=== PATIENT | female | born 1990 | race American Indian/Alaskan Native ===

== ENCOUNTER 2021-11-04 22:10 | Emergency (ER) | payer SELFPAY ==
[2021-11-04 23:55] LABS: Bacteria,Urine 1+ /HPF (Negative); Bilirubin,Urine NEG (Negative); Blood,Urine NEG (Negative); Color,Urine Straw (Yellow); Protein,Urine <15 mg/dL mg/dL (Negative); Sperm,Urine 1+ /HPF (NP); Urobilinogen,Urine < 2.0 mg/dL (<2.0); WBC,Urine < 1.0 /HPF (0.0-6.0)
[2021-11-05] LABS: Amphetamine Screen,Urine Negative; Benzodiazepines Screen,Urine Negative; Cannabinoid Screen,Urine Negative; Cocaine Screen,Urine Negative; Methadone Screen,Urine Negative; Opiate Screen,Urine Negative
[2021-11-05 00:42] LABS: Basophils # (Auto) 0.1 K/mm3 (0.0-0.1); Basophils % (Auto) 0.5 % (0.0-1.8); Eosinophils # (Auto) 0.1 K/mm3 (0.0-0.4); Eosinophils % (Auto) 0.7 % (0.0-4.3); Hematocrit 40.1 % (30.3-42.9); Hemoglobin 13.1 gm/dl (10.1-14.3); Lymphocytes # (Auto) 3.6 K/mm3 (1.2-5.4); Lymphocytes % (Auto) 31.3 % (13.4-35.0); Mean Corpuscular HGB Conc 33 % (30-34); Mean Corpuscular Volume 96 fl (79-97); Monocytes # (Auto) 0.6 K/mm3 (0.0-0.8); Platelet Count 459 K/mm3 (140-440); Red Blood Count 4.19 M/mm3 (3.65-5.03)
[2021-11-05 00:56] LABS: Blood Urea Nitrogen 7 mg/dL (7-17); Hemolysis Index 7
[2021-11-05 01:02] LABS: BUN/Creatinine Ratio 10
--- NOTE | 2021-11-05 02:48 | Emergency Department Report ---
ED Psych HPI - General Chief Complaint: Psych Stated Complaint: CHEST PAIN HALLUCINATIONS Time Seen by Provider: 11/05/21 01:58 Source: patient Mode of arrival: Ambulatory Limitations: No Limitations - History of Present Illness Initial Comments: 31-year-old female the past medical history of hypertension and schizophrenia presents to the hospital complaining of psychosis and anterior chest wall pain prior patient states she takes metoprolol unknown dose daily for hypertension. Patient denies substance abuse. She complains of hallucinations but denies suicidal homicidal ideation. She denies cough, fever, or shortness of breath and chest pain is reproducible with palpation to sternum. Is unclear if patient is compliant with her psychiatric medications that she has given contradictory answers when asked about taking her medication - Related Data Previous Rx's Medication Instructions Recorded Last Taken Type busPIRone [Buspar] 5 mg PO BID 30 Days #60 tab 11/05/21 Unknown Rx hydrOXYzine PAMOATE [Vistaril] 25 mg PO Q6HR PRN 30 Days #60 cap 11/05/21 Unknown Rx risperiDONE [RisperDAL] 2 mg PO QHS 30 Days #30 11/05/21 Unknown Rx Allergies Allergy/AdvReac Type Severity Reaction Status Date / Time Penicillins Allergy Unknown Verified 11/04/21 23:06 ED Review of Systems ROS: Stated complaint: CHEST PAIN HALLUCINATIONS Other details as noted in HPI Comment: All other systems reviewed and negative ED Past Medical Hx - Medications Home Medications: Home Medications Medication Instructions Recorded Confirmed Last Taken Type busPIRone [Buspar] 5 mg PO BID 30 Days #60 tab 11/05/21 Unknown Rx hydrOXYzine PAMOATE [Vistaril] 25 mg PO Q6HR PRN 30 Days #60 cap 11/05/21 Unknown Rx risperiDONE [RisperDAL] 2 mg PO QHS 30 Days #30 11/05/21 Unknown Rx ED Physical Exam - General Limitations: No Limitations - Other Other exam information: General: No acute distress Head: Atraumatic Eyes: normal appearance ENT: Moist mucous membranes Neck: Normal appearance, no midline tenderness Chest: Clear to auscultation bilaterally, reproducible sternal chest wall tenderness CV: Regular rate and rhythm Abdomen: Soft, normal bowel sounds, nontender, nondistended, no rebound or guarding Back: Normal inspection Extremity: Normal inspection, full range of motion, no calf tenderness or leg edema Neuro: Alert O x 3, no facial asymmetry, speech clear, no gross motor sensory deficit Psych: Appropriate behavior Skin: No rash ED Course Vital Signs 11/04/21 11/04/21 11/05/21 22:43 23:53 09:34 Temperature 97.8 F 98.3 F 98.4 F Pulse Rate 100 H 78 76 Respiratory 18 18 18 Rate Blood Pressure 151/87 Blood Pressure 136/84 102/57 [Left] O2 Sat by Pulse 97 99 95 Oximetry 11/05/21 11/05/21 09:57 11:41 Temperature Pulse Rate 76 Respiratory Rate Blood Pressure 102/57 Blood Pressure [Left] O2 Sat by Pulse 95 Oximetry ED Medical Decision Making - Lab Data Result diagrams: 11/05/21 00:15 11/05/21 00:15 Lab Results 11/04/21 11/04/21 11/05/21 Range/Units Unknown Unknown 00:15 WBC (4.5-11.0) K/mm3 RBC (3.65-5.03) M/mm3 Hgb (10.1-14.3) gm/dl Hct (30.3-42.9) % MCV (79-97) fl MCH (28-32) pg MCHC (30-34) % RDW (13.2-15.2) % Plt Count (140-440) K/mm3 Lymph % (Auto) (13.4-35.0) % Stokes % (Auto) (0.0-7.3) % Eos % (Auto) (0.0-4.3) % Baso % (Auto) (0.0-1.8) % Lymph # (Auto) (1.2-5.4) K/mm3 Stokes # (Auto) (0.0-0.8) K/mm3 Eos # (Auto) (0.0-0.4) K/mm3 Baso # (Auto) (0.0-0.1) K/mm3 Seg Neutrophils % (40.0-70.0) % Seg Neutrophils # (1.8-7.7) K/mm3 Sodium (137-145) mmol/L Potassium (3.6-5.0) mmol/L Chloride (98-107) mmol/L Carbon Dioxide (22-30) mmol/L Anion Gap mmol/L BUN (7-17) mg/dL Creatinine (0.6-1.2) mg/dL Estimated GFR ml/min BUN/Creatinine Ratio % Glucose (65-100) mg/dL Calcium (8.4-10.2) mg/dL Urine Color Straw (Yellow) Urine Turbidity Clear (Clear) Urine pH 6.0 (5.0-7.0) Ur Specific Klemme 1.003 (1.003-1.030) Urine Protein <15 mg/dl (Negative) mg/dL Urine Glucose (UA) Neg (Negative) mg/dL Urine Ketones Neg (Negative) mg/dL Urine Blood Neg (Negative) Urine Nitrite Neg (Negative) Urine Bilirubin Neg (Negative) Urine Urobilinogen < 2.0 (<2.0) mg/dL Ur Leukocyte Esterase Neg (Negative) Urine WBC (Auto) < 1.0 (0.0-6.0) /HPF Urine RBC (Auto) 1.0 (0.0-6.0) /HPF U Epithel Cells (Auto) < 1.0 (0-13.0) /HPF Urine Bacteria (Auto) 1+ (Negative) /HPF Urine Yeast (Budding) Few /HPF Urine Sperm 1+ (TITLE EXAMINER) /HPF Salicylates < 0.3 L (2.8-20.0) mg/dL Urine Opiates Screen Negative Urine Methadone Screen Negative Acetaminophen (10.0-30.0) ug/mL Ur Barbiturates Screen Negative Ur Phencyclidine Scrn Negative Ur Amphetamines Screen Negative U Benzodiazepines Scrn Negative Urine Cocaine Screen Negative U Marijuana (THC) Screen Negative Drugs of Abuse Note Disclamer Plasma/Serum Alcohol (0-0.07) % 11/05/21 11/05/21 11/05/21 Range/Units 00:15 00:15 00:15 WBC (4.5-11.0) K/mm3 RBC (3.65-5.03) M/mm3 Hgb (10.1-14.3) gm/dl Hct (30.3-42.9) % MCV (79-97) fl MCH (28-32) pg MCHC (30-34) % RDW (13.2-15.2) % Plt Count (140-440) K/mm3 Lymph % (Auto) (13.4-35.0) % Stokes % (Auto) (0.0-7.3) % Eos % (Auto) (0.0-4.3) % Baso % (Auto) (0.0-1.8) % Lymph # (Auto) (1.2-5.4) K/mm3 Stokes # (Auto) (0.0-0.8) K/mm3 Eos # (Auto) (0.0-0.4) K/mm3 Baso # (Auto) (0.0-0.1) K/mm3 Seg Neutrophils % (40.0-70.0) % Seg Neutrophils # (1.8-7.7) K/mm3 Sodium 140 (137-145) mmol/L Potassium 4.1 (3.6-5.0) mmol/L Chloride 104.2 (98-107) mmol/L Carbon Dioxide 21 L (22-30) mmol/L Anion Gap 19 mmol/L BUN 7 (7-17) mg/dL Creatinine 0.7 (0.6-1.2) mg/dL Estimated GFR > 60 ml/min BUN/Creatinine Ratio 10 % Glucose 117 H (65-100) mg/dL Calcium 10.0 (8.4-10.2) mg/dL Urine Color (Yellow) Urine Turbidity (Clear) Urine pH (5.0-7.0) Ur Specific Klemme (1.003-1.030) Urine Protein (Negative) mg/dL Urine Glucose (UA) (Negative) mg/dL Urine Ketones (Negative) mg/dL Urine Blood (Negative) Urine Nitrite (Negative) Urine Bilirubin (Negative) Urine Urobilinogen (<2.0) mg/dL Ur Leukocyte Esterase (Negative) Urine WBC (Auto) (0.0-6.0) /HPF Urine RBC (Auto) (0.0-6.0) /HPF U Epithel Cells (Auto) (0-13.0) /HPF Urine Bacteria (Auto) (Negative) /HPF Urine Yeast (Budding) /HPF Urine Sperm (TITLE EXAMINER) /HPF Salicylates (2.8-20.0) mg/dL Urine Opiates Screen Urine Methadone Screen Acetaminophen 5.0 L (10.0-30.0) ug/mL Ur Barbiturates Screen Ur Phencyclidine Scrn Ur Amphetamines Screen U Benzodiazepines Scrn Urine Cocaine Screen U Marijuana (THC) Screen Drugs of Abuse Note Plasma/Serum Alcohol < 0.01 (0-0.07) % 11/05/21 Range/Units 00:15 WBC 11.4 H (4.5-11.0) K/mm3 RBC 4.19 (3.65-5.03) M/mm3 Hgb 13.1 (10.1-14.3) gm/dl Hct 40.1 (30.3-42.9) % MCV 96 (79-97) fl MCH 31 (28-32) pg MCHC 33 (30-34) % RDW 13.0 L (13.2-15.2) % Plt Count 459 H (140-440) K/mm3 Lymph % (Auto) 31.3 (13.4-35.0) % Stokes % (Auto) 5.0 (0.0-7.3) % Eos % (Auto) 0.7 (0.0-4.3) % Baso % (Auto) 0.5 (0.0-1.8) % Lymph # (Auto) 3.6 (1.2-5.4) K/mm3 Stokes # (Auto) 0.6 (0.0-0.8) K/mm3 Eos # (Auto) 0.1 (0.0-0.4) K/mm3 Baso # (Auto) 0.1 (0.0-0.1) K/mm3 Seg Neutrophils % 62.5 (40.0-70.0) % Seg Neutrophils # 7.2 (1.8-7.7) K/mm3 Sodium (137-145) mmol/L Potassium (3.6-5.0) mmol/L Chloride (98-107) mmol/L Carbon Dioxide (22-30) mmol/L Anion Gap mmol/L BUN (7-17) mg/dL Creatinine (0.6-1.2) mg/dL Estimated GFR ml/min BUN/Creatinine Ratio % Glucose (65-100) mg/dL Calcium (8.4-10.2) mg/dL Urine Color (Yellow) Urine Turbidity (Clear) Urine pH (5.0-7.0) Ur Specific Klemme (1.003-1.030) Urine Protein (Negative) mg/dL Urine Glucose (UA) (Negative) mg/dL Urine Ketones (Negative) mg/dL Urine Blood (Negative) Urine Nitrite (Negative) Urine Bilirubin (Negative) Urine Urobilinogen (<2.0) mg/dL Ur Leukocyte Esterase (Negative) Urine WBC (Auto) (0.0-6.0) /HPF Urine RBC (Auto) (0.0-6.0) /HPF U Epithel Cells (Auto) (0-13.0) /HPF Urine Bacteria (Auto) (Negative) /HPF Urine Yeast (Budding) /HPF Urine Sperm (TITLE EXAMINER) /HPF Salicylates (2.8-20.0) mg/dL Urine Opiates Screen Urine Methadone Screen Acetaminophen (10.0-30.0) ug/mL Ur Barbiturates Screen Ur Phencyclidine Scrn Ur Amphetamines Screen U Benzodiazepines Scrn Urine Cocaine Screen U Marijuana (THC) Screen Drugs of Abuse Note Plasma/Serum Alcohol (0-0.07) % - EKG Data -: EKG Interpreted by Me EKG shows normal: sinus rhythm, ST-T waves (no stemi) Rate: tachycardia (101) - Medical Decision Making 31-year-old female presents to the hospital complaining of psychosis. Patient does not endorse suicidal homicidal ideation. Is unclear if patient is compliant with her medications. Mental health evaluation requested. Patient has reproducible sternal chest wall pain likely secondary to musculoskeletal pain Critical Care Time: No Critical care attestation.: If time is entered above; I have spent that time in minutes in the direct care of this critically ill patient, excluding procedure time. ED Disposition Clinical Impression: Acute psychosis, Chest wall tenderness, Schizophrenia Disposition: 01 HOME / SELF CARE / HOMELESS Is pt being admited?: No Does the pt Need Aspirin: No Condition: Stable Instructions: Chest Wall Pain, Managing Schizophrenia Prescriptions: busPIRone [Buspar] 5 mg PO BID 30 Days #60 tab risperiDONE [RisperDAL] 2 mg PO QHS 30 Days #30 hydrOXYzine PAMOATE [Vistaril] 25 mg PO Q6HR PRN 30 Days #60 cap PRN Reason: Anxiety Referrals: PRIMARY CARE, [Primary Care Provider] - 3-5 Days
[2021-11-05 03:01] LABS: HCG Qualitative,Urine Negative (Negative)
[2021-11-05 09:35] VITALS: BP 102/57
[2021-11-05] MEDS ORDERED: METOPROLOL TARTRATE 25 MG TAB PO SCH (10:00)
--- NOTE | 2021-11-05 11:10 | Consultation ---
History of Present Illness - Reason for Consult Consult date: 11/05/21 Reason for consult: Mental health evaluation - History of Present Psychiatric Illness ED Note: 31-year-old female the past medical history of hypertension and schizophrenia presents to the hospital complaining of psychosis and anterior chest wall pain prior patient states she takes metoprolol unknown dose daily for hypertension. Patient denies substance abuse. She complains of hallucinations but denies suicidal homicidal ideation. She denies cough, fever, or shortness of breath and chest pain is reproducible with palpation to sternum. Is unclear if patient is compliant with her psychiatric medications that she has given contradictory answers when asked about taking her medication. The patient is a 31 year old female with history of schizophrenia. In my enc ounter with the patient, she is calm, alert and oriented x3. The patient reports that she ran out of her medications about a week ago " i just want to restart my meds." She denies any current suicidal/homicidal ideation and denies hallucinations. Diagnoses: Schizophrenia Suicide attempts or Self-harm behavior: Denies Prior psychiatric hospitalizations: Yes Substance Abuse history: Denies Previous psychiatric medications tried:Seroquel, Risperidone, Klonopin Outpatient treatment: Unknown PAST MEDICAL HISTORY: unknown Family Psychiatric History: None reported or documented SOCIAL HISTORY Marital Status: Single Living Arrangements: penitentiary Employment Status: unemployed Access to guns/weapons: Denies Education: 9th grade History of Abuse: none reported Legal History: none reported REVIEW OF SYSTEMS Constitutional: Negative for weight loss ENT: Negative for stridor Respiratory: Negative for cough or hemoptysis All other systems reviewed and are negative MENTAL STATUS EXAMINATION General Appearance and Behavior: Age appropriate, good hygiene, wearing appropriate clothes, calm, cooperative Cooperation: Participating/engaged Psychomotor Behavior: Normal Mood: Ok Affect and affective range: congruent with mood Thought Process: Goal directed Thought Content: Reality oriented Speech: Normal Suicidal Ideation: Denies Homicidal Ideation: Denies Hallucinations: Denies Delusions: None Impulse Control: Normal Insight and Judgment: Limited insight and judgment, Memory: Normal Attention: Divided Orientation: Alert, oriented Assessment and Plan (1)Hx Schizophrenia Current Visit: Yes Status: Acute Treatment Plan Vistaril 25mg po Every 6 hours as needed for anxiety Risperidone 2mg po QHS Buspar 5mg po BID The patient needs to follow up with his outpatient psychiatrist and therapist. Continue home meds Disposition: Do not recommend psychiatric inpatient admission at this time. [facility] will provide patient with psychiatric outpatient resources. Will sign off. Thanks Case staffed with Dr. Richard Medications and Allergies Medications and Allergies Allergies Allergy/AdvReac Type Severity Reaction Status Date / Time Penicillins Allergy Unknown Verified 11/04/21 23:06 Home Medications Medication Instructions Recorded Confirmed Last Taken Type busPIRone [Buspar] 5 mg PO BID 30 Days #60 tab 11/05/21 Unknown Rx hydrOXYzine PAMOATE [Vistaril] 25 mg PO Q6HR PRN 30 Days #60 cap 11/05/21 Unknown Rx risperiDONE [RisperDAL] 2 mg PO QHS 30 Days #30 11/05/21 Unknown Rx Active Meds: Active Medications Metoprolol Tartrate (Metoprolol Tartrate 25 Mg Tab) 25 mg PO BID JASPER Last Admin: 11/05/21 09:57 Dose: 25 mg Mental Status Exam - Vital signs Last Vital Signs Temp 98.4 F 11/05/21 09:34 Pulse 76 11/05/21 09:57 Resp 18 11/05/21 09:34 BP 102/57 11/05/21 09:57 Pulse Ox 95 11/05/21 09:34 Results Result Diagrams: 11/05/21 00:15 11/05/21 00:15 Abnormal lab results 11/05/21 11/05/21 11/05/21 Range/Units 00:15 00:15 00:15 WBC (4.5-11.0) K/mm3 RDW (13.2-15.2) % Plt Count (140-440) K/mm3 Carbon Dioxide 21 L (22-30) mmol/L Glucose 117 H (65-100) mg/dL Salicylates < 0.3 L (2.8-20.0) mg/dL Acetaminophen 5.0 L (10.0-30.0) ug/mL 11/05/21 Range/Units 00:15 WBC 11.4 H (4.5-11.0) K/mm3 RDW 13.0 L (13.2-15.2) % Plt Count 459 H (140-440) K/mm3 Carbon Dioxide (22-30) mmol/L Glucose (65-100) mg/dL Salicylates (2.8-20.0) mg/dL Acetaminophen (10.0-30.0) ug/mL All other labs normal.
[2021-11-05] MEDS ORDERED: FLUCONAZOLE 200 MG TAB PO ONE (12:03)
--- NOTE | 2021-11-06 09:02 | Electrocardiograph Report ---
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
== END 2021-11-05 13:05 | disposition home or self-care (01) ==
LOC: ED 22:10
DX: F23 Brief psychotic disorder (principal); R07.89 Other chest pain; Z88.0 Allergy status to penicillin
CPT/HCPCS: 36415; 80048; 80307; 80320; 81001; 81025; 85025; 93005; 99284; G0480

== ENCOUNTER 2021-12-15 10:45 | Emergency (ER) | payer SELFPAY ==
--- NOTE | 2021-12-15 13:51 | Emergency Department Report ---
- General Chief Complaint: Recheck/Abnormal Lab/Rx Stated Complaint: FLU/MEDICATION Time Seen by Provider: 12/15/21 13:41 Source: patient Mode of arrival: Ambulatory Limitations: No Limitations - History of Present Illness Initial Comments: 31-year-old female with no past medical history presents to the emergency department for evaluation of 2-week history of worsening cough. She states that she coughed so much at night that she has been unable to sleep. She states that she has intermittent shortness of breath but denies shortness of breath at this time. She denies fever, headache, nausea, vomiting. She states that she has not taken any medication for her symptoms at home. MD Complaint: cough, rhinorrhea, nasal congestion -: Gradual, week(s) (2) Severity: severe Associated Symptoms: rhinorrhea, nasal congestion, cough, shortness of breath. denies: fever, chills, myalgias, diaphoresis, headache, stiff neck, chest pain, abdominal pain, nausea, vomiting, diarrhea, rash, confusion, weight loss, epistaxis, hoarseness, ear pain Treatments Prior to Arrival: none - Related Data Previous Rx's Medication Instructions Recorded Last Taken Type busPIRone [Buspar] 5 mg PO BID 30 Days #60 tab 11/05/21 Unknown Rx hydrOXYzine PAMOATE [Vistaril] 25 mg PO Q6HR PRN 30 Days #60 cap 11/05/21 Unknown Rx risperiDONE [RisperDAL] 2 mg PO QHS 30 Days #30 11/05/21 Unknown Rx Benzonatate [Tessalon Perles] 100 mg PO Q8HR #21 cap 12/15/21 Unknown Rx guaiFENesin/CODEINE [Robitussin AC] 10 ml PO TID PRN #120 ml 12/15/21 Unknown Rx Allergies Allergy/AdvReac Type Severity Reaction Status Date / Time Penicillins Allergy Unknown Verified 11/04/21 23:06 ED Review of Systems ROS: Stated complaint: FLU/MEDICATION Other details as noted in HPI Comment: All other systems reviewed and negative Constitutional: denies: chills, fever, malaise, weakness Eyes: denies: eye pain, eye discharge, vision change ENT: congestion. denies: ear pain, throat pain, dental pain, hearing loss, epistaxis Respiratory: cough, shortness of breath. denies: SOB with exertion, SOB at rest, stridor, wheezing Cardiovascular: denies: chest pain, palpitations, dyspnea on exertion Gastrointestinal: denies: abdominal pain, nausea, vomiting, diarrhea, hematemesis, melena, hematochezia Genitourinary: denies: urgency, dysuria Musculoskeletal: denies: back pain Skin: denies: rash, lesions Neurological: denies: headache, weakness ED Past Medical Hx - Social History Smoking Status: Current Every Day Smoker Substance Use Type: None - Medications Home Medications: Home Medications Medication Instructions Recorded Confirmed Last Taken Type busPIRone [Buspar] 5 mg PO BID 30 Days #60 tab 11/05/21 Unknown Rx hydrOXYzine PAMOATE [Vistaril] 25 mg PO Q6HR PRN 30 Days #60 cap 11/05/21 Unknown Rx risperiDONE [RisperDAL] 2 mg PO QHS 30 Days #30 11/05/21 Unknown Rx Benzonatate [Tessalon Perles] 100 mg PO Q8HR #21 cap 12/15/21 Unknown Rx guaiFENesin/CODEINE [Robitussin AC] 10 ml PO TID PRN #120 ml 12/15/21 Unknown Rx ED Physical Exam - General Limitations: No Limitations General appearance: alert, in no apparent distress - Head Head exam: Present: atraumatic, normocephalic - Eye Eye exam: Present: normal appearance. Absent: conjunctival injection - ENT ENT exam: Absent: normal exam (Bilateral nasal mucosal edema.), normal orophraynx (Erythema noted to posterior oropharynx) - Neck Neck exam: Present: normal inspection. Absent: tenderness, lymphadenopathy - Respiratory Respiratory exam: Present: normal lung sounds bilaterally. Absent: respiratory distress, wheezes, rales, rhonchi, stridor, chest wall tenderness, accessory muscle use - Cardiovascular Cardiovascular Exam: Present: tachycardia, normal heart sounds - GI/Abdominal GI/Abdominal exam: Present: soft, normal bowel sounds. Absent: distended, guarding, rebound, rigid - Extremities Exam Extremities exam: Present: normal inspection, normal capillary refill. Absent: pedal edema, joint swelling, calf tenderness - Back Exam Back exam: Present: normal inspection. Absent: CVA tenderness (R), CVA tenderne ss (L) - Neurological Exam Neurological exam: Present: alert, oriented X3, normal gait - Psychiatric Psychiatric exam: Present: normal affect, normal mood - Skin Skin exam: Present: warm, dry, intact, normal color ED Course Vital Signs 12/15/21 12/15/21 11:48 14:03 Temperature 98.1 F 98.1 F Pulse Rate 112 H 81 Respiratory 18 20 Rate Blood Pressure 134/79 Blood Pressure 130/86 [Left] O2 Sat by Pulse 98 99 Oximetry ED Medical Decision Making - Medical Decision Making 31-year-old female with no past medical history presents to the emergency department for evaluation of 2-week history of worsening cough. She states that she coughed so much at night that she has been unable to sleep. She states that she has intermittent shortness of breath but denies shortness of breath at this time. She denies fever, headache, nausea, vomiting. She states that she has not taken any medication for her symptoms at home. Exam and symptoms consistent with URI with cough and congestion. Patient will be treated with Tessalon Perles along with Robitussin-AC to take as needed for cough. She is advised to take medication as prescribed and follow-up with prima ry care provider if no improvement or worsening symptoms. She is advised to return to the emergency department for any concerning symptoms. She verbalized understanding of and agreement with plan of care. Critical care attestation.: If time is entered above; I have spent that time in minutes in the direct care of this critically ill patient, excluding procedure time. ED Disposition Clinical Impression: URI with cough and congestion Disposition: 01 HOME / SELF CARE / HOMELESS Is pt being admited?: No Does the pt Need Aspirin: No Condition: Stable Instructions: Cough, Adult, [id number], Upper Respiratory Infection, Adult, [id number] Additional Instructions: Take medication as prescribed. Follow-up with primary care provider if no improvement or worsening symptoms. Prescriptions: guaiFENesin/CODEINE [Robitussin AC] 10 ml PO TID PRN #120 ml PRN Reason: Cough Benzonatate [Tessalon Perles] 100 mg PO Q8HR #21 cap Referrals: RILEY ARIAS MD [Primary Care Provider] - 3-5 Days Time of Disposition: 13:51
[2021-12-15 14:06] VITALS: BP 130/86
== END 2021-12-15 14:06 | disposition home or self-care (01) ==
LOC: ED 10:45
DX: J06.9 Acute upper respiratory infection, unspecified (principal); F17.200 Nicotine dependence, unspecified, uncomplicated; Z88.0 Allergy status to penicillin
CPT/HCPCS: 99282

== ENCOUNTER 2022-03-04 13:14 | Emergency (ER) | payer SELFPAY | END 2022-03-04 19:00 | disposition left against medical advice (07) | LOC: ED 13:14 | DX: R07.9 Chest pain, unspecified (principal); J00 Acute nasopharyngitis [common cold]; Z53.21 Procedure and treatment not carried out due to patient leaving prior to being seen by health care provider ==

== ENCOUNTER 2022-04-03 19:03 | Emergency (ER) | payer SELFPAY ==
--- NOTE | 2022-04-03 21:30 | Emergency Department Report ---
- General Chief Complaint: Upper Respiratory Infection Stated Complaint: CHEST COLD Time Seen by Provider: 04/03/22 21:18 Source: EMS Mode of arrival: Ambulatory Limitations: No Limitations - History of Present Illness Initial Comments: Patient 31-year-old female with history of paranoid schizophrenia who presents for cough x1 week. Patient denies fevers or chills no shortness of breath no wheezing. Cough is productive clear per patient. Patient denies throat pain or ear pain. Symptoms are exacerbated by viral exposure. Symptoms are relieved by nothing tried. Patient denies nausea or vomiting. Patient denies smoking. MD Complaint: cough - Related Data Previous Rx's Medication Instructions Recorded Last Taken Type busPIRone [Buspar] 5 mg PO BID 30 Days #60 tab 11/05/21 Unknown Rx hydrOXYzine PAMOATE [Vistaril] 25 mg PO Q6HR PRN 30 Days #60 cap 11/05/21 Unknown Rx risperiDONE [RisperDAL] 2 mg PO QHS 30 Days #30 11/05/21 Unknown Rx Benzonatate [Tessalon Perles] 100 mg PO Q8HR #21 cap 12/15/21 Unknown Rx guaiFENesin/CODEINE [Robitussin AC] 10 ml PO TID PRN #120 ml 12/15/21 Unknown Rx Acetaminophen [Pain Relief] 6,560 mg PO QID PRN #30 tab 04/03/22 Unknown Rx guaiFENesin [Guaifenesin] 400 mg PO Q8H PRN #20 tab 04/03/22 Unknown Rx Allergies Allergy/AdvReac Type Severity Reaction Status Date / Time Penicillins Allergy Unknown Verified 11/04/21 23:06 ED Review of Systems ROS: Stated complaint: CHEST COLD Other details as noted in HPI Constitutional: denies: chills, fever Eyes: denies: eye pain, eye discharge, vision change ENT: congestion. denies: ear pain, throat pain Respiratory: cough. denies: shortness of breath, stridor, wheezing Cardiovascular: denies: chest pain, palpitations Endocrine: no symptoms reported Gastrointestinal: denies: abdominal pain, nausea, diarrhea Genitourinary: denies: urgency, dysuria, discharge Musculoskeletal: denies: back pain, joint swelling, arthralgia Skin: denies: rash, lesions Neurological: denies: headache, weakness, paresthesias, vertigo Psychiatric: denies: anxiety, depression Hematological/Lymphatic: denies: easy bleeding, easy bruising ED Past Medical Hx - Social History Smoking Status: Current Every Day Smoker Substance Use Type: None - Medications Home Medications: Home Medications Medication Instructions Recorded Confirmed Last Taken Type busPIRone [Buspar] 5 mg PO BID 30 Days #60 tab 11/05/21 Unknown Rx hydrOXYzine PAMOATE [Vistaril] 25 mg PO Q6HR PRN 30 Days #60 cap 11/05/21 Unknown Rx risperiDONE [RisperDAL] 2 mg PO QHS 30 Days #30 11/05/21 Unknown Rx Benzonatate [Tessalon Perles] 100 mg PO Q8HR #21 cap 12/15/21 Unknown Rx guaiFENesin/CODEINE [Robitussin AC] 10 ml PO TID PRN #120 ml 12/15/21 Unknown Rx Acetaminophen [Pain Relief] 6,560 mg PO QID PRN #30 tab 04/03/22 Unknown Rx guaiFENesin [Guaifenesin] 400 mg PO Q8H PRN #20 tab 04/03/22 Unknown Rx ED Physical Exam - General Limitations: No Limitations General appearance: alert, in no apparent distress - Head Head exam: Present: normocephalic, normal inspection - Eye Eye exam: Present: PERRL, EOMI. Absent: conjunctival injection, nystagmus Pupils: Present: normal accommodation - ENT ENT exam: Present: normal orophraynx, mucous membranes moist, TM's normal bilaterally, normal external ear exam - Neck Neck exam: Present: normal inspection, full ROM. Absent: tenderness, lymphadenopathy - Respiratory Respiratory exam: Present: normal lung sounds bilaterally. Absent: respiratory distress, wheezes, rales, rhonchi, stridor, chest wall tenderness - Cardiovascular Cardiovascular Exam: Present: regular rate, normal rhythm, normal heart sounds. Absent: systolic murmur, diastolic murmur, rubs, gallop - GI/Abdominal GI/Abdominal exam: Present: soft, normal bowel sounds. Absent: distended, tenderness - Rectal Rectal exam: Present: deferred - Extremities Exam Extremities exam: Present: normal inspection, full ROM, normal capillary refill. Absent: pedal edema - Back Exam Back exam: Present: normal inspection, full ROM. Absent: CVA tenderness (R), CVA tenderness (L) - Neurological Exam Neurological exam: Present: alert, oriented X3, CN II-XII intact, normal gait - Psychiatric Psychiatric exam: Present: normal affect, normal mood - Skin Skin exam: Present: warm, dry, intact, normal color. Absent: rash ED Course Vital Signs 04/03/22 19:31 Temperature 98.9 F Pulse Rate 101 H Respiratory 14 Rate Blood Pressure 129/76 [Right] O2 Sat by Pulse 99 Oximetry ED Medical Decision Making - Medical Decision Making This is straight for URI plan DC home, take [id number] antitussives, follow-up with your primary care doctor in 2 to 3 days. Return to emergency department should symptoms worsen. Patient verbalized agreement understanding of discharge plan. Patient DC'd home in stable condition at this time. Critical care attestation.: If time is entered above; I have spent that time in minutes in the direct care of this critically ill patient, excluding procedure time. ED Disposition Clinical Impression: URI (upper respiratory infection) Qualifiers: URI type: unspecified viral URI Qualified Code(s): J06.9 - Acute upper respiratory infection, unspecified Disposition: 01 HOME / SELF CARE / HOMELESS Is pt being admited?: No Does the pt Need Aspirin: No Condition: Stable Instructions: Upper Respiratory Infection, Adult, [id number] Additional Instructions: Take medication as prescribed, hydrate as directed. Follow-up with your doctor in 2 to 3 days. Return to emergency department should symptoms worsen. Prescriptions: guaiFENesin [Guaifenesin] 400 mg PO Q8H PRN #20 tab PRN Reason: cough Acetaminophen [Pain Relief] 6,560 mg PO QID PRN #30 tab PRN Reason: Pain fever Referrals: [facility] [Provider Group] - 3-5 Days Forms: Work/School Release Form(ED) Time of Disposition: 21:30
[2022-04-03 23:19] VITALS: BP 124/72
== END 2022-04-03 23:19 | disposition home or self-care (01) ==
LOC: ED 19:03
DX: J06.9 Acute upper respiratory infection, unspecified (principal); F17.200 Nicotine dependence, unspecified, uncomplicated; Z88.0 Allergy status to penicillin; Z79.899 Other long term (current) drug therapy
CPT/HCPCS: 99283